=== PATIENT | female | born 1940 | race African-American/Black ===

== ENCOUNTER → 2018-07-27 | Outpatient (CLI) | payer MEDICARE, BC ==
[2015-11-10 13:32] VITALS: BP 111/62
[~2018-07-27] MED LIST: ALEN70TA3 PO; ATOR20TA58 PO; CALC500T30 PO; LIALDA1.2 GM PO; LOSA1TAB19 PO; MONT10TA9 PO; RANI300C PO
--- NOTE | 2018-07-27 14:09 | RAD ---
MRI Lumbar Spine without contrast History: Worsening chronic low back pain, history of disc herniation Technique: Multiplanar, multi sequential noncontrast MR imaging was performed of the lumbar spine. Comparison: None Findings: There is some motion degradation. Lumbar vertebral body stature is overall maintained. There is minimal grade 1 anterior spondylolisthesis at L3-4 and L2-3. There is advanced degenerative disc disease at L4-5 and L5-S1, mild to moderate degenerative disc disease at L2-3 and to lesser degree L3-4. Conus terminates at L2. There is some edema of the L4-5 and inferior L5 endplates and negligible endplate edema at L3-4 probably reactive/degenerative in etiology. There are posterior annular tears L3-4, L4-5, L5-S1. L1-L2: This level was not included on the axial images. Neural foramina and spinal canal are adequate. L2-L3: There is mild buckling of the ligamentum flavum and facet degenerative change. There is minimal bulge greater in the left lateral recess without significant neural impingement or spinal stenosis, mild indentation upon the ventral thecal sac in the far left lateral recess. Neural foramina are overall adequate. L3-L4: There is moderate buckling of the ligamentum flavum and mild facet degenerative change. There is prominence of posterior epidural fat. There is posterior bulge and shallow central protrusion. There is mild indentation upon the ventral thecal sac. Combination of findings results in mild to moderate narrowing of the far lateral recesses, mild narrowing of the central canal. Neural foramina are overall adequate. L4-L5: There is minimal disc osteophyte complex and superimposed bulge/broad protrusion. There is [id number] buckling of the ligamentum flavum and facet degenerative change greater on the right. There is very mild narrowing of the far right lateral recess. Left neural foramen is adequate. There is moderate narrowing greater distally of the right neural foramen, contact of the exiting right L4 nerve root by disc osteophyte complex and protrusion and also posterior narrowing by ligamentum flavum. L5-S1: There is negligible disc osteophyte complex, spinal canal overall adequate. There is mild buckling of the ligamentum flavum and and [id number] facet degenerative change. There is moderate to severe left and mild right neural foramina compromise. Impression: 1. There is more advanced degenerative disc disease at L4-5 and L5-S1, to lesser degree at L3-4 and L2-3. Endplate edema greatest at L4-5 is likely reactive/degenerative in etiology. There is multilevel mild spondylosis. 2. There is mild to moderate narrowing of the far lateral recesses at L3-4, very mild narrowing of the far right lateral recess at L4-5. 3. There is neural foramina compromise as stated, more significant narrowing on the left at L5-S1, to lesser degree on the right at L4-5. 4. There is multilevel facet degenerative change. There is grade 1 anterior spondylolisthesis at L2-3 and L3-4. Electronically signed by: Morales Muñoz MD (07/27/2018 2:07 PM) [id number]
== END | disposition home or self-care (01) ==
LOC: MRI 12:54
PROVIDERS: ATTEND Nurse Practitioner Adult Health
DX: M51.37 Other intervertebral disc degeneration, lumbosacral region (principal); M48.07 Spinal stenosis, lumbosacral region; M47.817 Spondylosis without myelopathy or radiculopathy, lumbosacral region; M43.16 Spondylolisthesis, lumbar region; M25.78 Osteophyte, vertebrae; G89.29 Other chronic pain
CPT/HCPCS: 72148